=== PATIENT | female | born 1980 | race Two or more races ===

== ENCOUNTER 2018-03-09 18:01 | Emergency (ER) | payer OTHER ==
[2018-03-09 18:31] VITALS: BP 154/98; PULSE 89; TEMP 98.3; BMI 29.8
--- NOTE | 2018-03-09 18:32 | PDOC ---
Rapid Medical Evaluation Chief Complaint: Toothache Medical Evaluation: 03/09/18 18:28 I have performed a brief in-person evaluation of this patient. The patient presents with a chief complaint of:toothache x 2 days. No fevers. No known injury/ told needs left lower molar removed Pertinent physical exam findings: tearful, , mild left cheek swelling , + decay noted to inferior border of left lower molar I have ordered the following: nothing The patient will proceed to the ED for further evaluation. Discharge Disposition - Discharge Dispostion Condition at time of disposition: Stable - Referrals - Patient Instructions - Post Discharge Activity
[2018-03-09] MEDS ORDERED: traMADol HCL 50 MG TABLET PO ONE (18:40)
[2018-03-09] MEDS ORDERED: KETOROLAC TROMETHAMINE 60 MG/2 ML VIAL IM ONE (18:40)
--- NOTE | 2018-03-09 18:42 | PDOC ---
History of Present Illness - General Chief Complaint: Toothache Stated Complaint: TOOTHACHE Time Seen by Provider: 03/09/18 18:30 History Source: Patient - History of Present Illness Timing/Duration: other (3 days ago) Past History - Past Medical History Allergies/Adverse Reactions: Allergies Allergy/AdvReac Type Severity Reaction Status Date / Time No Known Allergies Allergy Verified 03/09/18 18:31 Home Medications: Ambulatory Orders Hydrocodone/Ibuprofen [VICOPROFEN 7.5/200 mg [NF MEDICATION]] 1 tab PO Q6H #15 tablet MDD 4 doses 03/09/18 - Suicide/Smoking/Psychosocial Hx Smoking History: Never smoked Have you smoked in the past 12 months: No Information on smoking cessation initiated: No Hx Alcohol Use: No Drug/Substance Use Hx: No Review of Systems - Review of Systems Constitutional: No: Chills, Fever *Physical Exam - Vital Signs Last Vital Signs Temp Pulse Resp BP Pulse Ox 98.3 F 89 18 154/98 99 03/09/18 18:28 03/09/18 18:28 03/09/18 18:28 03/09/18 18:28 03/09/18 18:28 - Physical Exam General Appearance: Yes: Appropriately Dressed, Mild Distress HEENT: positive: Normal Voice, Other (+ttp to L lower wisdom tooth, no swelling or discharge) Neck: positive: Supple. negative: Lymphadenopathy (R), Lymphadenopathy (L) Respiratory/Chest: negative: Respiratory Distress Integumentary: positive: Dry, Warm Neurologic: positive: Fully Oriented, Alert, Normal Mood/Affect Moderate Sedation - Procedure Monitoring Vital Signs: Procedure Monitoring Vital Signs Temperature 98.3 F 03/09/18 18:28 Pulse Rate 89 03/09/18 18:28 Respiratory Rate 18 03/09/18 18:28 Blood Pressure 154/98 03/09/18 18:28 O2 Sat by Pulse Oximetry (%) 99 03/09/18 18:28 Medical Decision Making - Medical Decision Making 03/09/18 18:37 37 yo F, no sig hx, here w/ toothache to L wisdom tooth x 3 days. No trauma. Last dental clinic was 1 month ago, told she needed a root canal to R lower wisdom tooth. Pt states she was told a yr ago that she may need L lower wisdom extracted but as she was not having pain at the time, opted not to have tooth extracted. States she has dental appt tomorrow but here for pain relief as motrin not relieving pain per pt. Pt w/ minimal distress w/ +ttp to L lower wisdom tooth, no obvious s/o infection. Dc w/ pain control, to f/u with dental tomorrow *DC/Admit/Observation/Transfer Diagnosis at time of Disposition: Toothache - Discharge Dispostion Disposition: HOME Condition at time of disposition: Stable - Prescriptions Prescriptions: Hydrocodone/Ibuprofen [VICOPROFEN 7.5/200 mg [NF MEDICATION]] 1 tab PO Q6H #15 tablet MDD 4 doses - Referrals Referrals: Moy Mckeon MD [Primary Care Provider] - - Patient Instructions Printed Discharge Instructions: DI for Dental Pain Additional Instructions: Take medication for pain as directed and follow up with your dentist tomorrow Print Language: GREEK - Post Discharge Activity
[2018-03-09] MEDS ORDERED: KETOROLAC TROMETHAMINE 60 MG/2 ML VIAL ONE (18:44)
[2018-03-09] MEDS ORDERED: traMADol HCL 50 MG TABLET ONE (18:45)
== END 2018-03-09 18:50 | disposition home or self-care (01) ==
LOC: JERFT 18:01
PROC: 3E0233Z Introduction of Anti-inflammatory into Muscle, Percutaneous Approach (ICD-10-PCS; principal; 2018-03-09)
DX: K08.89 Other specified disorders of teeth and supporting structures (principal)
CPT/HCPCS: 99281-25